=== PATIENT | female | born 1960 | race Caucasian/White ===

== ENCOUNTER 2019-03-05 08:12 | Day surgery (SDC) | payer OTHER ==
[2019-03-05] MEDS ORDERED: PROPOFOL 20 ML ×2 (10:12→10:32)
[2019-03-05] MEDS ORDERED: LIDOCAINE 2% (SDV) 5 ML INJ (10:12)
[2019-03-05] MEDS ORDERED: MIDAZOLAM 1 MG/ML 2 ML INJ ×2 (10:13)
== END 2019-03-05 14:24 | disposition home or self-care (01) ==
LOC: GIL 08:12
DX: Z12.11 Encounter for screening for malignant neoplasm of colon (principal); K64.8 Other hemorrhoids; I10 Essential (primary) hypertension
CPT/HCPCS: 45378